=== PATIENT | male | born 1965 | race African-American/Black ===

== ENCOUNTER 2016-08-04 10:41 | Emergency (ER) | payer SELFPAY ==
[~2016-08-04 10:41] MED LIST: LISI-360 PO
[2016-08-04 10:44] VITALS: BP 183/112; PULSE 71; RESP 24; TEMP 98; O2SAT 98
[2016-08-04 11:13] VITALS: BP 182/97; PULSE 66
[2016-08-04 12:13] VITALS: BP 184/114; PULSE 69; RESP 18; O2SAT 95
--- NOTE | 2016-08-04 12:34 | PD ---
HPI Chief Complaint: Complaint Time Seen by Provider: 12:34 Travel History International Travel<30 days: No Contact w/Intl Traveler<30days: No Traveled to known affect area: No History of Present Illness HPI 50-year-old male with a history of hypertension presents to the emergency department for evaluation of testicular pain and swelling. The patient states that he has testicular swelling and pain worse on the left side for the past week. States that he has also had burning with urination for the past week with some intermittent lower abdominal pain. States that he has had swelling like this in the past that resolved on its own. Denies any fever, chills, nausea, vomiting, diarrhea, urinary frequency, hematuria, urethral discharge. States that he is sexually active and is unsure whether he could've contracted an STD. Denies any prior abdominal surgeries. Symptoms are mild. Aggravated with urination. Denies any alleviating factors. No other complaints. PFSH Past Medical History Cardiovascular Problems: Yes (htn) COPD: Yes Diminished Hearing: Yes ([place]) Glaucoma: Yes Headaches: Yes Hypertension: Yes Immunizations Current: Yes Past Surgical History Surgical History: No Previous Surgery Social History Alcohol Use: Yes (OCC) Tobacco Use: Yes (1PP3D) Substance Use: Yes (MARIJUANA) Allergies-Medications (Allergen,Severity, Reaction): Coded Allergies: Lisinopril (Verified Allergy, Severe, 08/04/16) Angioedema Reported Meds & Prescriptions Reported Meds & Active Scripts Active Amlodipine (Amlodipine Besylate) 5 Mg Tab 5 Mg PO DAILY Review of Systems Except as stated in HPI: all other systems reviewed are Neg Physical Exam Narrative GENERAL: Well-nourished and well-developed pleasant male patient in no acute distress who is nontoxic appearing. SKIN: Warm and dry. HEAD: Normocephalic and atraumatic. EYES: No injection, drainage, or hyphema noted. PERRLA. EOMI. ENT: No nasal drainage noted. Oropharynx is clear. NECK: Supple and the trachea is midline. CARDIOVASCULAR: Regular rate and rhythm. RESPIRATORY: Breath sounds are equal bilaterally with no accessory muscle use, wheezing, rhonchi, or crackles. GASTROINTESTINAL: Mild tenderness to palpation of right, mid and left lower abdomen. No rebound tenderness or guarding. Abdomen is soft and nondistended. GENITOURINARY: Uncircumcised. Testes descended bilaterally without evidence of rotation. Mild tenderness to palpation of bilateral scrotum, worse on the left. No hernias palpated. No lesions or erythema. No urethral discharge. Performed in the presence of Tlou RN. MUSCULOSKELETAL: No obvious deformities, swelling, cyanosis, or ecchymosis is present throughout the upper and lower extremities. NEUROLOGICAL: Awake, alert, and oriented. Normal speech and gait. Cranial nerves are grossly intact. Data Data Last Documented VS Vital Signs Date Time Temp Pulse Resp B/P Pulse Ox O2 Delivery O2 Flow Rate FiO2 08/04/16 15:23 67 18 204/109 95 Room Air 08/04/16 10:44 98.0 Orders Urinalysis - C+S If Indicated (08/04/16 12:32) Gc And Chlamydia Pcr (08/04/16 12:32) Us Testicles W Doppler (08/04/16 12:32) Sodium Chloride 0.9% Flush (Ns Flush) (08/04/16 12:45) Complete Blood Count With Diff (08/04/16 13:16) Comprehensive Metabolic Panel (08/04/16 13:16) Lipase (08/04/16 13:16) Ct Abd/Pel W Iv Contrast(Rout) (08/04/16 13:16) Iv Access Insert/Monitor (08/04/16 13:16) Ecg Monitoring (08/04/16 13:16) Oximetry (08/04/16 13:16) Sodium Chlor 0.9% 1000 Ml Inj (Ns 1000 M (08/04/16 13:16) Amlodipine (Norvasc) (08/04/16 15:45) Iohexol 350 Inj (Omnipaque 350 Inj) (08/04/16 15:56) Labs Laboratory Tests Test 08/04/16 08/04/16 12:40 14:14 Urine Color YELLOW Urine Turbidity CLEAR Urine pH 6.0 Urine Specific Nancy 1.021 Urine Protein NEG mg/dL Urine Glucose (UA) NEG mg/dL Urine Ketones NEG mg/dL Urine Occult Blood NEG Urine Nitrite NEG Urine Bilirubin NEG Urine Urobilinogen LESS THAN 2.0 MG/DL Urine Leukocyte Esterase NEG Urine RBC 1 /hpf Urine WBC 3 /hpf Urine Squamous Epithelial <1 /hpf Cells Urine Mucus FEW /lpf Microscopic Urinalysis Comment CULT NOT INDICATED Chlamydia trachomatis DNA NOT DETECTED (PCR) Neisseria gonorrhoeae DNA NOT DETECTED (PCR) White Blood Count 6.8 TH/MM3 Red Blood Count 4.91 MIL/MM3 Hemoglobin 14.2 GM/DL Hematocrit 42.8 % Mean Corpuscular Volume 87.2 FL Mean Corpuscular Hemoglobin 28.8 PG Mean Corpuscular Hemoglobin 33.1 % Concent Red Cell Distribution Width 15.2 % Platelet Count 271 TH/MM3 Mean Platelet Volume 7.7 FL Neutrophils (%) (Auto) 36.5 % Lymphocytes (%) (Auto) 47.7 % Monocytes (%) (Auto) 10.6 % Eosinophils (%) (Auto) 4.5 % Basophils (%) (Auto) 0.7 % Neutrophils # (Auto) 2.5 TH/MM3 Lymphocytes # (Auto) 3.3 TH/MM3 Monocytes # (Auto) 0.7 TH/MM3 Eosinophils # (Auto) 0.3 TH/MM3 Basophils # (Auto) 0.0 TH/MM3 CBC Comment DIFF FINAL Differential Comment Sodium Level 139 MEQ/L Potassium Level 3.7 MEQ/L Chloride Level 105 MEQ/L Carbon Dioxide Level 24.8 MEQ/L Anion Gap 9 MEQ/L Blood Urea Nitrogen 6 MG/DL Creatinine 0.88 MG/DL Estimat Glomerular Filtration 111 ML/MIN Rate Random Glucose 79 MG/DL Calcium Level 8.9 MG/DL Total Bilirubin 0.3 MG/DL Aspartate Amino Transf 14 U/L (AST/SGOT) Alanine Aminotransferase 20 U/L (ALT/SGPT) Alkaline Phosphatase 83 U/L Total Protein 7.9 GM/DL Albumin 3.6 GM/DL Lipase 79 U/L MDM Medical Decision Making Medical Screen Exam Complete: Yes Emergency Medical Condition: Yes Differential Diagnosis UTI versus urethritis versus STI versus epididymitis versus orchitis versus varicocele Narrative Course 50-year-old male presents to the emergency department for evaluation of testicular pain and burning with urination. Patient is afebrile. Vital signs are stable. He is slightly hypertensive however admits to a history of hypertension and does not take any medications. He has some mild scrotal tenderness. Urinalysis and testicular ultrasound has been ordered and is pending. CBC is unremarkable. CMP is unremarkable. Urinalysis is unremarkable. Gonorrhea and Chlamydia is negative. Scrotal ultrasound shows bilateral varicoceles, right greater than left. Bilateral hydroceles, left greater than right. Intact flow to both testicles. CT of the abdomen and pelvis is negative for any acute abnormalities. Patient has remained stable while here in the emergency department. His blood pressure did elevate to 204/109 and the patient became concerned. We'll start him on amlodipine for blood pressure management since he is not currently taking anything for his blood pressure. He is instructed to follow up as an outpatient with a urologist and a primary care provider. Patient verbalizes understanding and agreement with treatment plan. I discussed the case with my attending physician Dr. Cardoso who is aware of the patients history, physical examination findings, and treatment plan. Diagnosis Primary Impression: Scrotal pain Referrals: Chemo Samuels MD [facility] Patient Instructions: General Instructions, Hydrocele (ED), Varicocele (ED) Additional Instructions: Follow-up with a urologist as an outpatient. Return to the ED for any acute worsening of symptoms. Med/Other Pt SpecificInfo: Prescription(s) given Scripts Amlodipine 5 Mg Tab5 Mg PO DAILY #30 TAB Ref 0 Prov:Lucero Cardoso MD 08/04/16 Disposition: 01 DISCHARGE HOME Condition: Stable Sarah Aponte Aug 04, 2016 12:34 Sarah Aponte Aug 04, 2016 12:34
[2016-08-04] MEDS ORDERED: SODIUM CHLORIDE 0.9% FLUSH 10 ML FLUSH IVF PRN (12:45)
[2016-08-04 13:02] LABS: BLOOD, URINE NEG (NEG); COMMENT (UR) CULT NOT INDICATED; CULTURE IF INDICATED CULT NOT INDICATED; GLUCOSE,URINE NEG (NEG); KETONE, URINE NEG (NEG); MUCUS URINE FEW /lpf (OCC); NITRITE,URINE NEG (NEG); SQUAMOUS EPITHELIAL CELL URINE <1 /hpf (0-5); URINE COLOR YELLOW (YELLW/STRAW)
[2016-08-04] MEDS ORDERED: SODIUM CHLOR 0.9% 1000 ML INJ 1,000 ML IV SCH (13:16)
[2016-08-04 14:00] VITALS: BP 193/116; PULSE 68; RESP 18; O2SAT 95
[2016-08-04 14:30] LABS: AUTOMATED NEUTROPHIL # 2.5 TH/MM3 (1.8-7.7); BASOPHIL % 0.7 % (0.0-2.0); EOSINOPHIL # 0.3 TH/MM3 (0-0.4); EOSINOPHIL % 4.5 % (0.0-4.0); HEMATOCRIT 42.8 % (39.0-51.0); HEMO FLAGS DIFF FINAL; LYMPH % 47.7 % (9.0-44.0); LYMPHOCYTE # 3.3 TH/MM3 (1.0-4.8); MEAN CELL VOLUME 87.2 FL (80.0-100.0); MEAN CORPUSCULAR HEMOGLOBIN 28.8 PG (27.0-34.0); MEAN CORPUSCULAR HGB CONC 33.1 % (32.0-36.0); MONO % 10.6 % (0.0-8.0); NEUT % 36.5 % (16.0-70.0); PLATELET COUNT 271 TH/MM3 (150-450); RED BLOOD COUNT 4.91 MIL/MM3 (4.50-5.90); RED CELL DISTRIBUTION WIDTH 15.2 % (11.6-17.2); WHITE BLOOD COUNT 6.8 TH/MM3 (4.0-11.0)
[2016-08-04 14:31] VITALS: O2SAT 95
[2016-08-04 14:46] LABS: ANION GAP 9 MEQ/L (5-15); AST (GOT) 14 U/L (15-37); BICARBONATE 24.8 MEQ/L (21.0-32.0); BLOOD UREA NITROGEN 6 MG/DL (7-18); CHLORIDE 105 MEQ/L (98-107); GLOMERULAR FILTRATION RATE 111 ML/MIN (>89); POTASSIUM 3.7 MEQ/L (3.5-5.1); SODIUM (NA) 139 MEQ/L (136-145)
[2016-08-04 14:48] LABS: ALKALINE PHOSPHATASE 83 U/L (45-117); ALT (GPT) 20 U/L (12-78); TOTAL BILIRUBIN ADULT 0.3 MG/DL (0.2-1.0)
[2016-08-04 15:23] VITALS: BP 204/109; PULSE 67; RESP 18; O2SAT 95
[2016-08-04] MEDS ORDERED: amLODIPine BESYLATE 5 MG TAB PO ONE (15:45)
[2016-08-04] MEDS ORDERED: IOHEXOL 350 MG/ML 10 ML VIAL (for RAD DIAG) IV ONE (15:56)
[2016-08-04 16:04] LABS: CHLAMYDIA PCR NOT DETECTED (NOT DETECT); NEISSERIA PCR NOT DETECTED (NOT DETECT)
--- NOTE | 2016-08-04 16:24 | RADRPT ---
EXAM DATE/TIME: 08/04/2016 14:57 [facility] COMPARISON: No previous studies available for comparison. INDICATIONS : Left testicle pain. MEDICAL HISTORY : Hypertension. Left testicle pain. SURGICAL HISTORY : None. ENCOUNTER: Initial ACUITY: 1 week PAIN SCORE: 8/10 LOCATION: Bilateral testicle. MEASUREMENTS: RIGHT TESTICLE: 4.7 x 3.8 x 2.8cm LEFT TESTICLE: 4.9 x 3.5 x 3.0cm FINDINGS: RIGHT TESTICLE: Homogeneous echotexture without intra or extratesticular mass. Blood flow is symmetric and within no rmal limits. There is a moderate size varicocele with increased flow on Valsalva. Small hydrocele. Less than 2 mm epididymal cyst. LEFT TESTICLE: Homogeneous echotexture without intra or extratesticular mass. Blood flow is symmetric and within no rmal limits. Moderate size hydrocele. Small varicocele increased flow on Valsalva. SCROTUM: Within normal limits. CONCLUSION: Bilateral varicoceles, right greater than left. Bilateral hydroceles, left greater than right. Inta ct flow to both testicles. Bebeto Rivera MD on August 04, 2016 at 16:18 Board Certified Radiologist. This report was verified electronically.
--- NOTE | 2016-08-04 16:28 | RADRPT ---
EXAM DATE/TIME: 08/04/2016 15:40 [facility] COMPARISON: No previous studies available for comparison. INDICATIONS : Swollen testicles for 1 week, painful urination. IV CONTRAST: 96 cc Omnipaque 350 (iohexol) IV ORAL CONTRAST: No oral contrast ingested. RADIATION DOSE: 13.09 CTDIvol (mGy) MEDICAL HISTORY : Cardiovascular disease. Hypertension. SURGICAL HISTORY : None. ENCOUNTER: Initial ACUITY: 1 week PAIN SCALE: 2/10 LOCATION: Bilateral pelvis TECHNIQUE: Volumetric scanning of the abdomen and pelvis was performed. Using automated exposure control and ad justment of the mA and/or kV according to patient size, radiation dose was kept as low as reasonably achievable to obtain optimal diagnostic quality images. FINDINGS: LOWER LUNGS: Scattered atelectasis and/or fibrotic scarring is noted within the visualized bases. LIVER: Homogeneous density without lesion. There is no dilation of the biliary tree. No calcified gallston es. SPLEEN: Normal size without lesion. PANCREAS: Within normal limits. KIDNEYS: Normal in size and shape. Multiple left renal cysts are noted with the largest measuring 1.4 cm. The re is no solid mass, stone or hydronephrosis. ADRENAL GLANDS: Within normal limits. VASCULAR: There is no aortic aneurysm. BOWEL/MESENTERY: Uncomplicated colonic diverticulosis is noted. No acute diverticulitis is noted. ABDOMINAL WALL: Within normal limits. RETROPERITONEUM: There is no lymphadenopathy. BLADDER: No wall thickening or mass. REPRODUCTIVE: Within normal limits. INGUINAL: There is no lymphadenopathy or hernia. MUSCULOSKELETAL: Degenerative changes and scoliosis of the thoraco-lumbar spine. CONCLUSION: Uncomplicated colonic diverticulosis. Degenerative changes and scoliosis of the thora co-lumbar spine. Multiple left renal cysts. Scattered bibasilar atelectasis and/or fibrotic scarring. Stephan Churchill MD on August 04, 2016 at 16:21 Board Certified Radiologist. This report was verified electronically.
[2016-08-04] MEDS ORDERED: AMLO5TAB2 PO (16:37)
--- NOTE | 2016-08-04 23:27 | EKG ---
Date Performed: 08/04/2016 Time Performed: 15:38:46 PTAGE: 50 years EKG: Sinus rhythm NORMAL ECG INTERPRETATION BASED ON A DEFAULT AGE OF 40 YEARS PREVIOUS TRACING : 09/28/2015 09.14 Compared to prior tracing no significant change DOCTOR: Ricardo Joseph Interpretating Date/Time 08/04/2016 23:26:03
== END 2016-08-04 17:07 | disposition home or self-care (01) ==
LOC: NEPD 10:41
DX: N50.812 Left testicular pain (principal); N43.3 Hydrocele, unspecified; I10 Essential (primary) hypertension; F17.200 Nicotine dependence, unspecified, uncomplicated
CPT/HCPCS: 74177; 76870; 80053; 81001; 83690; 85025; 87491; 87591; 93005; 93975; 99284; J7030; Q9967

== ENCOUNTER 2017-02-01 07:56 | Emergency (ER) | payer SELFPAY ==
[~2017-02-01] VITALS: Ht 170.2 cm; Wt 105.0 kg
[~2017-02-01 07:56] MED LIST changes: +AMLO5TAB2 PO; -LISI-360 PO
[2017-02-01 08:00] VITALS: BP 163/94; PULSE 86; RESP 14; TEMP 98.8; O2SAT 98
[2017-02-01] MEDS ORDERED: SODIUM CHLORID 0.9% 500 ML INJ 500 ML IV ONE (09:30)
[2017-02-01 09:55] LABS: AUTOMATED NEUTROPHIL # 3.8 TH/MM3 (1.8-7.7); BASOPHIL % 0.7 % (0.0-2.0); EOSINOPHIL # 0.2 TH/MM3 (0-0.4); EOSINOPHIL % 3.1 % (0.0-4.0); HEMATOCRIT 45.4 % (39.0-51.0); HEMO FLAGS DIFF FINAL; LYMPHOCYTE # 2.2 TH/MM3 (1.0-4.8); MEAN CELL VOLUME 89.4 FL (80.0-100.0); MEAN CORPUSCULAR HEMOGLOBIN 30.3 PG (27.0-34.0); MEAN CORPUSCULAR HGB CONC 33.8 % (32.0-36.0); MONO % 12.8 % (0.0-8.0); NEUT % 52.4 % (16.0-70.0); PLATELET COUNT 277 TH/MM3 (150-450); RED BLOOD COUNT 5.07 MIL/MM3 (4.50-5.90); RED CELL DISTRIBUTION WIDTH 15.1 % (11.6-17.2); WHITE BLOOD COUNT 7.2 TH/MM3 (4.0-11.0)
[2017-02-01 10:14] LABS: ANION GAP 9 MEQ/L (5-15); AST (GOT) 12 U/L (15-37); BICARBONATE 24.3 MEQ/L (21.0-32.0); BLOOD UREA NITROGEN 9 MG/DL (7-18); CHLORIDE 104 MEQ/L (98-107); GLOMERULAR FILTRATION RATE 115 ML/MIN (>89); POTASSIUM 3.8 MEQ/L (3.5-5.1); SODIUM (NA) 137 MEQ/L (136-145)
[2017-02-01 10:20] LABS: ALKALINE PHOSPHATASE 77 U/L (45-117); ALT (GPT) 19 U/L (12-78); TOTAL BILIRUBIN ADULT 0.3 MG/DL (0.2-1.0)
[2017-02-01] MEDS ORDERED: IOHEXOL 350 MG/ML 10 ML VIAL (for RAD DIAG) IVCONTRAST ONE (11:00)
--- NOTE | 2017-02-01 11:41 | RADRPT ---
EXAM DATE/TIME: 02/01/2017 10:59 [facility] COMPARISON: CT ABDOMEN & PELVIS W CONTRAST, August 04, 2016, 15:40. INDICATIONS : Swelling under testicles and pelvic pain for one week. IV CONTRAST: 72 cc Omnipaque 350 (iohexol) IV ORAL CONTRAST: No oral contrast ingested. RADIATION DOSE: 12.02 CTDIvol (mGy) MEDICAL HISTORY : Hypertension. Chronic obstructive pulmonary disease. SURGICAL HISTORY : None. ENCOUNTER: Initial ACUITY: 1 day PAIN SCALE: 8/10 LOCATION: Bilateral pelvis TECHNIQUE: Volumetric scanning of the pelvis was performed. Using automated exposure control and adjustment of t he mA and/or kV according to patient size, radiation dose was kept as low as reasonably achievable to obtain optimal diagnostic quality images. DICOM format image data is available electronically for review and comparison. FINDINGS: BOWEL/MESENTERY: The visualized small and large bowel demonstrate no acute abnormality. There is no free fluid. BLADDER: There is no wall thickening or mass. RETROPERITONEUM: There is no aneurysm. There is a single mildly enlarged left external intact lymph node measuring 12 mm in short axis diameter.. There is mild atherosclerotic disease. REPRODUCTIVE: Prostate gland is within normal limits. INGUINAL: There is no hernia. There are 2 enlarged left inguinal lymph nodes measuring up to 13 mm in short axi s diameter.. MUSCULOSKELETAL: Within normal limits for patient age. There are inflammatory changes on the inferior aspect of the left hemiscrotum with a focal 2 cm area of low density. There is overlying skin thickening. CONCLUSION: 1. There are inflammatory changes and skin thickening on the inferior left hemiscrotum with focal 2 c m area of low density. This could represent an inflammatory process or abscess. 2. There are mildly enlarged left inguinal lymph node seen in the left external intact lymph node, li tyron reactive secondary to the scrotal inflammatory process. Faraz Ackerman MD on February 01, 2017 at 11:24 Board Certified Radiologist. This report was verified electronically.
[2017-02-01 12:40] VITALS: BP 150/91; PULSE 87; RESP 18; O2SAT 100
--- NOTE | 2017-02-01 12:43 | PD ---
Physical Exam Date Seen by Provider: Feb 01, 2017 Time Seen by Provider: 12:41 Narrative 51-year-old male with abscess to the left groin region. I was asked by Dr. Cota to drain this abscess. Please see procedure note. Data Data Last Documented VS Vital Signs Date Time Temp Pulse Resp B/P (MAP) Pulse Ox O2 Delivery O2 Flow Rate FiO2 02/01/17 09:12 Room Air 02/01/17 08:00 98.8 86 14 163/94 (117) 98 Orders Orders Iv Access Insert/Monitor (02/01/17 09:17) Complete Blood Count With Diff (02/01/17 09:17) Comprehensive Metabolic Panel (02/01/17 09:17) Lactic Acid (02/01/17 09:17) Ct Pelvis W Iv Contrast(Rout) (02/01/17 ) Sodium Chlorid 0.9% 500 Ml Inj (Ns 500 M (02/01/17 09:30) Electrocardiogram (02/01/17 ) Troponin I (02/01/17 09:28) Iohexol 350 Inj (Omnipaque 350 Inj) (02/01/17 11:00) Lidocai-Epi 2%-1:100,000 Inj (Xylocaine- (02/01/17 12:45) Labs Laboratory Tests Test 02/01/17 09:25 White Blood Count 7.2 TH/MM3 Red Blood Count 5.07 MIL/MM3 Hemoglobin 15.3 GM/DL Hematocrit 45.4 % Mean Corpuscular Volume 89.4 FL Mean Corpuscular Hemoglobin 30.3 PG Mean Corpuscular Hemoglobin Concent 33.8 % Red Cell Distribution Width 15.1 % Platelet Count 277 TH/MM3 Mean Platelet Volume 7.5 FL Neutrophils (%) (Auto) 52.4 % Lymphocytes (%) (Auto) 31.0 % Monocytes (%) (Auto) 12.8 % Eosinophils (%) (Auto) 3.1 % Basophils (%) (Auto) 0.7 % Neutrophils # (Auto) 3.8 TH/MM3 Lymphocytes # (Auto) 2.2 TH/MM3 Monocytes # (Auto) 0.9 TH/MM3 Eosinophils # (Auto) 0.2 TH/MM3 Basophils # (Auto) 0.0 TH/MM3 CBC Comment DIFF FINAL Differential Comment Blood Urea Nitrogen 9 MG/DL Creatinine 0.85 MG/DL Random Glucose 84 MG/DL Total Protein 8.2 GM/DL Albumin 3.6 GM/DL Calcium Level 9.2 MG/DL Alkaline Phosphatase 77 U/L Aspartate Amino Transf (AST/SGOT) 12 U/L Alanine Aminotransferase (ALT/SGPT) 19 U/L Total Bilirubin 0.3 MG/DL Sodium Level 137 MEQ/L Potassium Level 3.8 MEQ/L Chloride Level 104 MEQ/L Carbon Dioxide Level 24.3 MEQ/L Anion Gap 9 MEQ/L Estimat Glomerular Filtration Rate 115 ML/MIN Lactic Acid Level 1.5 mmol/L MDM Medical Record Reviewed: Yes Supervised Visit with ADAM: Yes Procedures Procedure Narrative After the risks and benefits were discussed the following procedure was performed: INCISION AND DRAINAGE OF ABSCESS: The area was prepped and was sterilely draped. A subcutaneous wheal of 2 % Xylocaine with lidocaine with a total number 2.5 mL was used to anesthetize the area. The area was properly anesthetized. A number 11 scalpel was used to make a 1-cm incision across the area of the abscess. Cultures were obtained. The abscess was drained an irrigated with normal saline. Quarter inch iodoform packing was placed in the wound. Sterile dressing applied. Patient advised to have packing removed in two days. Scripts No Active Prescriptions or Reported Meds Condition: Stable Tyrese Rivera Feb 01, 2017 12:43
[2017-02-01] MEDS ORDERED: LIDOCAINE 2%/EPINEPHrine 1:100,000 20ML MDV NERV BLOCK ONE (12:45)
[2017-02-01] MEDS ORDERED: CEPH-460 PO (13:16)
[2017-02-01] MEDS ORDERED: BACT800T5 PO (13:16)
--- NOTE | 2017-02-01 13:17 | PD ---
HPI Chief Complaint: Abnormal Results Time Seen by Provider: 09:10 Travel History International Travel<30 days: No Contact w/Intl Traveler<30days: No Traveled to known affect area: No History of Present Illness HPI Patient is a 51-year-old male who comes in complaining of pain and swelling to his scrotum. He says he had this before, but it was more pain to his testicle. He says this is different and it is been there for the past week and seems to be getting worse. He has noticed some drainage in his underwear. He says his tried to put a hot compress on once, but he felt it was too hot. He denies fever or chills. He says he does have pain after urination. He denies any issues moving his bowels. He denies any discharge from his penis. PFSH Past Medical History Cardiovascular Problems: Yes (htn) COPD: Yes Diminished Hearing: Yes ([place]) Glaucoma: Yes Headaches: Yes Hypertension: Yes Immunizations Current: Yes Tetanus Vaccination: < 5 Years Influenza Vaccination: No Past Surgical History Surgical History: No Previous Surgery Social History Alcohol Use: Yes (OCC) Tobacco Use: Yes (04/21 PPD) Substance Use: Yes (MARIJUANA) Allergies-Medications (Allergen,Severity, Reaction): Coded Allergies: lisinopril (Unverified Allergy, Severe, 02/01/17) Angioedema Reported Meds & Prescriptions Reported Meds & Active Scripts Active Keflex (Cephalexin) 500 Mg Capsule 500 Mg PO Q6H 7 Days Bactrim DS (Sulfamethoxazole-Trimethoprim) 800-160 Mg Tab 1 Tab PO BID Review of Systems Except as stated in HPI: all other systems reviewed are Neg General / Constitutional: No: Fever, Chills HENT: No: Headaches, Lightheadedness Cardiovascular: No: Chest Pain or Discomfort Respiratory: No: Shortness of Breath Gastrointestinal: No: Nausea, Vomiting Genitourinary: No: Decreased Urinary Output, Discharge Musculoskeletal: No: Edema, Pain Skin: Positive Lesions Neurologic: No: Weakness, Dizziness Physical Exam Narrative GENERAL: Awake and alert, in no acute distress. SKIN: 2 cm abscess in the left groin area. Large surrounding area of induration. No active drainage. HEAD: Atraumatic. Normocephalic. EYES: Pupils equal and round. No scleral icterus. ENT: Mucous membranes pink and moist. NECK: Trachea midline. No JVD. CARDIOVASCULAR: Regular rate and rhythm. No murmur appreciated. RESPIRATORY: No accessory muscle use. Clear to auscultation. Breath sounds equal bilaterally. GASTROINTESTINAL: Abdomen soft, non-tender, nondistended. : Exam performed in the presence of a nurse. No testicular swelling or pain, abscess is in the groin area. No lesions on the penis. MUSCULOSKELETAL: No obvious deformities. No clubbing. No cyanosis. No edema. NEUROLOGICAL: Awake and alert. No obvious cranial nerve deficits. Motor grossly within normal limits. Normal speech. PSYCHIATRIC: Appropriate mood and affect; insight and judgment normal. Data Data Last Documented VS Vital Signs Date Time Temp Pulse Resp B/P (MAP) Pulse Ox O2 Delivery O2 Flow Rate FiO2 02/01/17 13:38 02/01/17 12:40 87 18 100 Room Air 02/01/17 08:00 98.8 Orders Orders Iv Access Insert/Monitor (02/01/17 09:17) Complete Blood Count With Diff (02/01/17 09:17) Comprehensive Metabolic Panel (02/01/17 09:17) Lactic Acid (02/01/17 09:17) Ct Pelvis W Iv Contrast(Rout) (02/01/17 ) Sodium Chlorid 0.9% 500 Ml Inj (Ns 500 M (02/01/17 09:30) Electrocardiogram (02/01/17 ) Troponin I (02/01/17 09:28) Iohexol 350 Inj (Omnipaque 350 Inj) (02/01/17 11:00) Lidocai-Epi 2%-1:100,000 Inj (Xylocaine- (02/01/17 12:45) Wound Culture And Gram Stain (02/01/17 13:14) Ed Discharge Order (02/01/17 13:14) Labs Laboratory Tests Test 02/01/17 09:25 White Blood Count 7.2 TH/MM3 Red Blood Count 5.07 MIL/MM3 Hemoglobin 15.3 GM/DL Hematocrit 45.4 % Mean Corpuscular Volume 89.4 FL Mean Corpuscular Hemoglobin 30.3 PG Mean Corpuscular Hemoglobin Concent 33.8 % Red Cell Distribution Width 15.1 % Platelet Count 277 TH/MM3 Mean Platelet Volume 7.5 FL Neutrophils (%) (Auto) 52.4 % Lymphocytes (%) (Auto) 31.0 % Monocytes (%) (Auto) 12.8 % Eosinophils (%) (Auto) 3.1 % Basophils (%) (Auto) 0.7 % Neutrophils # (Auto) 3.8 TH/MM3 Lymphocytes # (Auto) 2.2 TH/MM3 Monocytes # (Auto) 0.9 TH/MM3 Eosinophils # (Auto) 0.2 TH/MM3 Basophils # (Auto) 0.0 TH/MM3 CBC Comment DIFF FINAL Differential Comment Blood Urea Nitrogen 9 MG/DL Creatinine 0.85 MG/DL Random Glucose 84 MG/DL Total Protein 8.2 GM/DL Albumin 3.6 GM/DL Calcium Level 9.2 MG/DL Alkaline Phosphatase 77 U/L Aspartate Amino Transf (AST/SGOT) 12 U/L Alanine Aminotransferase (ALT/SGPT) 19 U/L Total Bilirubin 0.3 MG/DL Sodium Level 137 MEQ/L Potassium Level 3.8 MEQ/L Chloride Level 104 MEQ/L Carbon Dioxide Level 24.3 MEQ/L Anion Gap 9 MEQ/L Estimat Glomerular Filtration Rate 115 ML/MIN Lactic Acid Level 1.5 mmol/L Troponin I LESS THAN 0.02 NG/ML [facility] Medical Decision Making Medical Screen Exam Complete: Yes Emergency Medical Condition: Yes Medical Record Reviewed: Yes Differential Diagnosis Abscess versus cellulitis versus folliculitis versus enlarged lymph node Narrative Course Patient is a 51-year-old male comes in complaining of pain and swelling to his testicular area. Exam shows a groin abscess. IV established, labs sent. Labs show no acute abnormalities. CT of the pelvis performed shows an abscess of the hemiscrotum. Last [address] 02/01/17 0000 Signed Impressions: Service Date/Time: Wednesday, February 01, 2017 10:59 - CONCLUSION: 1. There are inflammatory changes and skin thickening on the inferior left hemiscrotum with focal 2 cm area of low density. This could represent an inflammatory process or abscess. 2. There are mildly enlarged left inguinal lymph node seen in the left external intact lymph node, likely reactive secondary to the scrotal inflammatory process. Faraz Ackerman MD Abscess drained by CRISTAL Rivera with a large amount of pus expressed. Patient given prescriptions for Bactrim and Keflex. He is advised follow-up with urology. Advised return in 2 days for wound check. Diagnosis Primary Impression: Abscess Referrals: Errol Lin MD call for appointment Patient Instructions: Abscess (ED), General Instructions Additional Instructions: Follow-up with urology. Take all of your antibiotics. Return to the ED as needed for any worsening symptoms. Scripts Cephalexin (Keflex) 500 Mg Capsule 500 MG PO Q6H for Infection for 7 Days, #28 CAP 0 Refills Prov: Sujey Cota MD 02/01/17 Sulfamethoxazole-Trimethoprim (Bactrim DS) 800-160 Mg Tab 1 TAB PO BID for Infection, #14 TAB 0 Refills Prov: Sujey Cota MD 02/01/17 Disposition: 01 DISCHARGE HOME Condition: Stable Sujey Cota MD Feb 01, 2017 13:17
[2017-02-01] MEDS ORDERED: VENTAER INH (19:30)
--- NOTE | 2017-02-01 21:36 | EKG ---
Date Performed: 02/01/2017 Time Performed: 09:37:10 PTAGE: 51 years EKG: Sinus rhythm NONSPECIFIC ST ELEVATION BORDERLINE ECG PREVIOUS TRACING : 08/04/2016 15.38 Compared to the previous tracing mild ST elevation is uncha nged DOCTOR: Sarah Jones Interpretating Date/Time 02/01/2017 21:35:25
== END 2017-02-01 13:46 | disposition home or self-care (01) ==
LOC: NEPE 07:56
DX: L02.214 Cutaneous abscess of groin (principal); J44.9 Chronic obstructive pulmonary disease, unspecified; H40.9 Unspecified glaucoma; F17.200 Nicotine dependence, unspecified, uncomplicated
CPT/HCPCS: 10061; 72193; 80053; 83605; 84484; 85025; 86403; 87070; 93005; 96360; 99285; J7040; Q9967; 87205

== ENCOUNTER 2017-02-03 08:30 | Emergency (ER) | payer SELFPAY ==
[~2017-02-03] VITALS: Ht 170.2 cm; Wt 106.0 kg
[~2017-02-03 08:30] MED LIST changes: -AMLO5TAB2 PO; +BACT800T5 PO; +CEPH-460 PO
[2017-02-03 08:31] VITALS: BP 168/92; PULSE 80; RESP 18; TEMP 98.5; O2SAT 98
--- NOTE | 2017-02-03 08:58 | PD ---
HPI Chief Complaint: Wound/Suture/Staple Re-Check Time Seen by Provider: 08:57 Travel History International Travel<30 days: No Contact w/Intl Traveler<30days: No Traveled to known affect area: No History of Present Illness HPI 51-year-old male presents to the emergency department requesting packing removal after having an abscess to his left scrotal area incised and drained 2 days ago. Denies fever, vomiting. Has been taking antibiotics as prescribed. Reports improvement in symptoms of the abscess. Says the area is tender. Denies dysuria. Allergies to lisinopril. Has no other medical complaints. No other modifying factors or associated signs and symptoms. PFSH Past Medical History Cardiovascular Problems: Yes (HTN) COPD: Yes Diminished Hearing: Yes ([place]) Glaucoma: Yes Headaches: Yes Hypertension: Yes Immunizations Current: Yes Social History Alcohol Use: Yes (OCC) Tobacco Use: Yes (04/21 PPD) Substance Use: Yes ([place]) Allergies-Medications (Allergen,Severity, Reaction): Coded Allergies: lisinopril (Unverified Allergy, Severe, 02/01/17) Angioedema Reported Meds & Prescriptions Reported Meds & Active Scripts Active Keflex (Cephalexin) 500 Mg Capsule 500 Mg PO Q6H 7 Days Bactrim DS (Sulfamethoxazole-Trimethoprim) 800-160 Mg Tab 1 Tab PO BID Review of Systems Except as stated in HPI: all other systems reviewed are Neg Physical Exam Narrative GENERAL: Well-nourished, well-developed black male patient, in no acute distress ; afebrile, nontoxic-appearing SKIN: There is an indurated area to the left scrotal/groin area post incision and drainage and iodoform packing is not intact; no drainage noted. There is a zone of inflammation around it but no lymphangitis. HEAD: Atraumatic. Normocephalic. EYES: Pupils equal and round. No scleral icterus. No injection or drainage. ENT: Mucosa pink and moist. Airway patent. NECK: Trachea midline. CARDIOVASCULAR: Regular rate. RESPIRATORY: No accessory muscle use. GASTROINTESTINAL: Rounded. MUSCULOSKELETAL: No obvious deformities. No clubbing. No cyanosis. No edema. NEUROLOGICAL: Awake and alert. Oriented 3. No obvious cranial nerve deficits. Motor grossly within normal limits. Normal speech. PSYCHIATRIC: Appropriate mood and affect; insight and judgment normal. Data Data Last Documented VS Vital Signs Date Time Temp Pulse Resp B/P (MAP) Pulse Ox O2 Delivery O2 Flow Rate FiO2 02/03/17 08:31 98.5 80 18 168/92 (117) 98 Room Air Orders Orders Ed Discharge Order (02/03/17 09:05) MDM Medical Decision Making Medical Screen Exam Complete: Yes Emergency Medical Condition: Yes Medical Record Reviewed: Yes Differential Diagnosis Encounter for abscess packing removal, abscess recheck, medical clearance Narrative Course 51-year-old male presents for abscess packing removal. Abscess was incised and drained 2 days ago. He is taking Keflex and Bactrim as prescribed. Wound culture from 02/01/2017 is growing group beta strep and is still not final. Patient is afebrile and nontoxic-appearing. Denies fever, vomiting. Reports improvement to the area. Instructed patient to continue antibiotics as prescribed. Instructed patient to follow up with primary care provider. Patient verbalizes understanding and agreement with treatment plan. Patient is medically cleared and stable for discharge. Discussed reasons to return to the emergency department. Patient agrees with treatment plan. The patients vital signs are stable and the patient is stable for outpatient follow-up and treatment. Patient discharged home, stable and in no acute distress. Diagnosis Primary Impression: Encounter for abscess packing removal Referrals: Primary Care Physician Patient Instructions: Abscess (ED), Abscess Follow-up (ED), Abscess Incision and Drainage (DC), General Instructions Additional Instructions: Continue and complete Complete full course of antibiotics Warm compresses to the affected area Keep area clean and dry Ibuprofen or Tylenol as directed and as needed for pain and inflammation Follow-up with primary care provider Return to emergency department immediately with worsening of symptoms Med/Other Pt SpecificInfo: No Change to Meds, No Meds Exist/No RX given Disposition: 01 DISCHARGE HOME Condition: Stable Sarah Read Feb 03, 2017 08:58
== END 2017-02-03 11:32 | disposition home or self-care (01) ==
LOC: NEPD 08:30
DX: Z48.00 Encounter for change or removal of nonsurgical wound dressing (principal)
CPT/HCPCS: 99281

== ENCOUNTER 2017-04-27 12:29 | Observation (INO) | payer SELFPAY ==
[2017-04-27] VITALS (8 sets, daily range): BP systolic 144–189; BP diastolic 88–109; PULSE 71–85; RESP 16–18; TEMP 97.9–98.4; O2SAT 96–99
--- NOTE | 2017-04-27 14:38 | RADRPT ---
EXAM DATE/TIME: 04/27/2017 14:05 [facility] COMPARISON: CHEST SINGLE AP, September 27, 2015, 21:14. INDICATIONS : Right side headache radiating into right shoulder, and right side chest pains x1 week. MEDICAL HISTORY : None. SURGICAL HISTORY : None. ENCOUNTER: Initial ACUITY: 1 week PAIN SCORE: 8/10 LOCATION: Right chest FINDINGS: Minimal linear scarring or atelectasis in the lower lung lim bilaterally. No evidence of effusion. Cardiomediastinal contours and pulmonary vasculature are satisfactory and stable. There are degenera tive changes in the spine. CONCLUSION: Minimal basilar parenchymal opacities. Faraz Tan MD on April 27, 2017 at 14:34 Board Certified Radiologist. This report was verified electronically.
[2017-04-27 15:17] LABS: BASOPHIL # 0.1 TH/MM3 (0-0.2); BASOPHIL % 1.4 % (0.0-2.0); EOSINOPHIL # 0.4 TH/MM3 (0-0.4); EOSINOPHIL % 4.6 % (0.0-4.0); HEMATOCRIT 45.7 % (39.0-51.0); HEMOGLOBIN 15.1 GM/DL (13.0-17.0); LYMPH % 46.2 % (9.0-44.0); LYMPHOCYTE # 3.6 TH/MM3 (1.0-4.8); MEAN CELL VOLUME 89.8 FL (80.0-100.0); MEAN CORPUSCULAR HEMOGLOBIN 29.7 PG (27.0-34.0); MEAN CORPUSCULAR HGB CONC 33.1 % (32.0-36.0); MEAN PLATELET VOLUME 7.7 FL (7.0-11.0); MONO % 9.4 % (0.0-8.0); MONOCYTE # 0.7 TH/MM3 (0-0.9); NEUT % 38.4 % (16.0-70.0); PLATELET COUNT 228 TH/MM3 (150-450); RED BLOOD COUNT 5.08 MIL/MM3 (4.50-5.90); RED CELL DISTRIBUTION WIDTH 15.6 % (11.6-17.2); WHITE BLOOD COUNT 7.8 TH/MM3 (4.0-11.0)
[2017-04-27 15:28] LABS: PROTHROMBIN TIME - PATIENT 10.6 SEC (9.8-11.6)
--- NOTE | 2017-04-27 15:33 | PD ---
HPI . Jaw pain Chief Complaint: Respiratory Symptoms Time Seen by Provider: 15:03 Travel History International Travel<30 days: No Contact w/Intl Traveler<30days: No Traveled to known affect area: No History of Present Illness HPI 51 yo male presents to ED with multiple complaints. He is a poor historian. For the last two weeks he has had episodic 3/10 chest pain that radiates to arm. The chest pain occurs randomly and is not associated with any exertion or diaphoresis. He also complains of jaw pain that has also started within the last two weeks. The jaw pain does not occur at the same time as the chest pain. He states that he will develop pain and swelling of his right jaw multiple times per day and that the pain and swelling will last for just a few seconds. He has poor dentition and has not been to a dentist in many years. He is also complaining of some shortness of breath for the last two weeks. He denies any fever/chills, nasal congestion or cough. There are no aggravating or relieving factors. He takes Advil for all of these complaints with mild relief of his jaw pain. PFSH Past Medical History Cardiovascular Problems: Yes (HTN) COPD: Yes Diminished Hearing: Yes ([place]) Glaucoma: Yes Headaches: Yes Hypertension: Yes Respiratory: Yes Immunizations Current: Yes Tetanus Vaccination: < 5 Years Influenza Vaccination: No Past Surgical History Surgical History: No Previous Surgery Social History Alcohol Use: Yes (OCC) Tobacco Use: Yes (04/21 PPD) Substance Use: Yes ([place]) Allergies-Medications (Allergen,Severity, Reaction): Coded Allergies: lisinopril (Unverified Allergy, Severe, 04/27/17) Angioedema Reported Meds & Prescriptions Reported Meds & Active Scripts Active No Active Prescriptions or Reported Medications Review of Systems ROS Limitations: Poor Historian Except as stated in HPI: all other systems reviewed are Neg General / Constitutional: No: Fever, Chills Eyes: No: Blurred Vision HENT: Positive: Headaches, Dental Difficulties, No: Rhinorrhea, Congestion Cardiovascular: Positive: Chest Pain or Discomfort Respiratory: Positive: Shortness of Breath Gastrointestinal: No: Nausea, Vomiting Physical Exam Narrative GENERAL: Awake and alert and in no acute distress. SKIN: warm/dry. Good color. HEAD: Normocephalic. Atraumatic. There is no swelling of his jaw. EYES: Pupils equal and round. No scleral icterus. No injection or drainage. ENT: No nasal bleeding or discharge. Mucous membranes pink and moist. Very poor dentition. No tenderness to percussion of his teeth. NECK: Trachea midline. Full range of motion without pain.. No cervical adenopathy palpated though he complains that the swelling has been along the right anterior cervical chain. There is no thyromegaly. No tenderness of the submandibular glands. CARDIOVASCULAR: Regular rate and rhythm. Heart sounds are normal. RESPIRATORY: No accessory muscle use. Clear to auscultation. Breath sounds equal bilaterally. GASTROINTESTINAL: Abdomen soft. Nontender. Bowel sounds present. Nondistended. MUSCULOSKELETAL: No obvious deformities. No peripheral edema. NEUROLOGICAL: Awake and alert. No obvious cranial nerve deficits. Motor grossly within normal limits. Normal speech. PSYCHIATRIC: Appropriate mood and affect; insight and judgment normal. Data Data Last Documented VS Vital Signs Date Time Temp Pulse Resp B/P (MAP) Pulse Ox O2 Delivery O2 Flow Rate FiO2 04/27/17 15:53 76 18 184/106 (132) 98 Room Air 04/27/17 12:31 98.4 Orders Orders Electrocardiogram (04/27/17 13:08) B-Type Natriuretic Peptide (04/27/17 13:08) Ckmb (Isoenzyme) Profile (04/27/17 13:08) Complete Blood Count With Diff (04/27/17 13:08) Comprehensive Metabolic Panel (04/27/17 13:08) Magnesium (Mg) (04/27/17 13:08) Prothrombin Time / Inr (Pt) (04/27/17 13:08) Act Partial Throm Time (Ptt) (04/27/17 13:08) Troponin I (04/27/17 13:08) Lipase (04/27/17 13:08) Chest, Pa & Lat (04/27/17 13:08) CKMB (04/27/17 15:00) CKMB% (04/27/17 15:00) Labs Laboratory Tests Test 04/27/17 15:00 White Blood Count 7.8 TH/MM3 Red Blood Count 5.08 MIL/MM3 Hemoglobin 15.1 GM/DL Hematocrit 45.7 % Mean Corpuscular Volume 89.8 FL Mean Corpuscular Hemoglobin 29.7 PG Mean Corpuscular Hemoglobin Concent 33.1 % Red Cell Distribution Width 15.6 % Platelet Count 228 TH/MM3 Mean Platelet Volume 7.7 FL Neutrophils (%) (Auto) 38.4 % Lymphocytes (%) (Auto) 46.2 % Monocytes (%) (Auto) 9.4 % Eosinophils (%) (Auto) 4.6 % Basophils (%) (Auto) 1.4 % Neutrophils # (Auto) 3.0 TH/MM3 Lymphocytes # (Auto) 3.6 TH/MM3 Monocytes # (Auto) 0.7 TH/MM3 Eosinophils # (Auto) 0.4 TH/MM3 Basophils # (Auto) 0.1 TH/MM3 CBC Comment DIFF FINAL Differential Comment Prothrombin Time 10.6 SEC Prothromb Time International Ratio 1.0 RATIO Activated Partial Thromboplast Time 27.4 SEC Blood Urea Nitrogen 8 MG/DL Creatinine 0.94 MG/DL Random Glucose 79 MG/DL Total Protein 8.3 GM/DL Albumin 3.7 GM/DL Calcium Level 8.6 MG/DL Magnesium Level 2.1 MG/DL Alkaline Phosphatase 91 U/L Aspartate Amino Transf (AST/SGOT) 15 U/L Alanine Aminotransferase (ALT/SGPT) 25 U/L Total Bilirubin 0.3 MG/DL Sodium Level 138 MEQ/L Potassium Level 4.7 MEQ/L Chloride Level 105 MEQ/L Carbon Dioxide Level 28.1 MEQ/L Anion Gap 5 MEQ/L Estimat Glomerular Filtration Rate 102 ML/MIN Total Creatine Kinase 108 U/L Creatine Kinase MB 1.3 NG/ML Troponin I LESS THAN 0.02 NG/ML B-Type Natriuretic Peptide 46 PG/ML Lipase 81 U/L MDM Medical Decision Making Medical Screen Exam Complete: Yes Emergency Medical Condition: Yes Interpretation(s) EKG shows a normal sinus rhythm with no acute ischemic changes Differential Diagnosis Differential diagnosis of facial swelling includes but is not limited to dental abscess, cellulitis, angioedema, facial trauma. Differential diagnosis of chest pain includes but is not limited to musculoskeletal pain, pulmonary embolism, acute coronary syndrome, pneumonia, pleurisy Narrative Course This patient presents with multiple complaints. His chief complaint seems to be jaw pain and swelling which comes frequently daily and last a few seconds. I don't think that there is very much to this complaint. Is more concerning complaint is the intermittent chest pain that he's been having for the last couple of weeks. He reports a history of COPD and hypertension but takes no medications. Last Impressions Chest X-Ray 04/27/17 1308 Signed Impressions: Service Date/Time: Thursday, April 27, 2017 14:05 - CONCLUSION: Minimal basilar parenchymal opacities. Faraz Tan MD CBC & BMP Diagram 04/27/17 15:00 Total Protein 8.3 H, Albumin 3.7, Calcium Level 8.6, Magnesium Level 2.1, Alkaline Phosphatase 91, Aspartate Amino Transf (AST/SGOT) 15, Alanine Aminotransferase (ALT/SGPT) 25, Total Bilirubin 0.3 trop < 0.02 I feel that this patient needs to be admitted to the chest pain center for further evaluation of the intermittent chest pain that he's had for the last couple weeks. Diagnosis Primary Impression: Chest pain Qualified Codes: R07.9 - Chest pain, unspecified Additional Impression: Jaw pain Admitting Information Admitting Physician Requests: Observation Scripts No Active Prescriptions or Reported Meds Condition: Stable Neema Kuhn MD Apr 27, 2017 15:33
[2017-04-27 15:43] LABS: ALBUMIN 3.7 GM/DL (3.4-5.0); ALT (GPT) 25 U/L (12-78); AST (GOT) 15 U/L (15-37); BICARBONATE 28.1 MEQ/L (21.0-32.0); BLOOD UREA NITROGEN 8 MG/DL (7-18); CALCIUM 8.6 MG/DL (8.5-10.1); CHLORIDE 105 MEQ/L (98-107); CREATININE 0.94 MG/DL (0.60-1.30); GLOMERULAR FILTRATION RATE 102 ML/MIN (>89); GLUCOSE,RANDOM 79 MG/DL (74-106); LIPASE 81 U/L (73-393); MAGNESIUM 2.1 MG/DL (1.5-2.5); SODIUM (NA) 138 MEQ/L (136-145)
[2017-04-27 15:46] LABS: ALKALINE PHOSPHATASE 91 U/L (45-117); TOTAL BILIRUBIN ADULT 0.3 MG/DL (0.2-1.0); TOTAL PROTEIN 8.3 GM/DL (6.4-8.2); TROPONIN I LESS THAN 0.02 NG/ML (0.02-0.05)
[2017-04-27] MEDS ORDERED: ACETAMINOPHEN 500 MG CPLT PO PRN (17:00)
[2017-04-27] MEDS ORDERED: SODIUM CHLORIDE 0.9% FLUSH 10 ML FLUSH IV FLUSH PRN (17:00)
[2017-04-27] MEDS ORDERED: ONDANSETRON HCL 4 MG/2 ML VIAL IV PUSH PRN (17:00)
[2017-04-27] MEDS ORDERED: NITROGLYCERIN 0.4 MG SL 25 TABS/BTL SL PRN (17:00)
--- NOTE | 2017-04-27 17:12 | HHI.HP ---
HPI Primary Care Physician No Primary Care Physician Chief Complaint Chest pain History of Present Illness 51-year-old male with history of hypertension, congestive heart failure, and current smoker presents to emergency room for chest pain. Of note he is a poor historian. Onset of chest pain "for a long time." Location left anterior chest. Characterized as sharp. Radiation to left arm and left scapula. Duration 2-3 minutes. Associated symptoms include dyspnea and diaphoresis at times. Denies nausea or vomiting. No known precipitating or relieving factors. Episodes occurred at least 3 times today. Review of Systems General: No fatigue,weakness, fever, chills, or recent illness change in appetite. Has been his general state of health. HEENT: No [place], no vision changes, no nasal congestion or drainage, no dysphasia CV: As stated above. Currently chest pain-free. No pressure, palpitations, intermittent leg pain, dizziness RESP: No SOB, cough, wheeze, or recent URI. Endorses history of COPD and current smoker. GI: No nausea, vomiting, bowel changes, diarrhea, constipation, pain, distention , melena, or blood in the stool. No unintentional weight gain or weight loss. : No dysuria, urgency, frequency EXT: No lower leg edema, no paraesthesias MS: No discomfort or change in ROM NEURO: No difficulty with balance, LOC, or motor/sensory deficits PSYCH: No anxiety, depression SKIN: No rashes, no concerning lesions Past Family Social History Allergies: Coded Allergies: lisinopril (Unverified Allergy, Severe, 04/27/17) Angioedema Past Medical History Hypertension, CHF, COPD, TIA, glaucoma Past Surgical History None Reported Medications Reported Meds & Active Scripts Active No Active Prescriptions or Reported Medications Active Ordered Medications Current Medications Medications (Trade) Dose Ordered Sig/Sonny Route Start Time Stop Time Status Last Admin (NS Flush) 2 ml UNSCH PRN IV FLUSH 04/27/17 17:00 (NS Flush) 2 ml BID IV FLUSH 04/27/17 21:00 (Tylenol) 500 mg Q4H PRN PO 04/27/17 17:00 (Zofran Inj) 4 mg Q6H PRN IV PUSH 04/27/17 17:00 (Nitrostat Sl) 0.4 mg Q5M PRN SL 04/27/17 17:00 (Aspirin) 325 mg DAILY PO 04/28/17 09:00 Family History Noncontributory for early onset cardiovascular disease. Social History Known hypertension. No known diabetes, CAD, or hyperlipidemia. Current smoker 1/3pack daily. 20 pack year history. . Endorses active lifestyle. Past cardiac testing None Physical Exam Vital Signs Vital Signs Date Time Temp Pulse Resp B/P (MAP) Pulse Ox O2 Delivery O2 Flow Rate FiO2 04/27/17 17:02 77 18 175/109 (131) 98 Room Air 04/27/17 15:53 76 18 184/106 (132) 98 Room Air 04/27/17 14:48 74 18 189/109 (135) 98 Room Air 04/27/17 14:47 69 22 95 Room Air 04/27/17 12:31 98.4 85 16 173/98 (123) 98 Physical Exam GENERAL: Alert WN, WD, NAD, pleasant, male who appears older than stated age. HEAD: NC, AT EYES: Sclera clear, conjunctiva without injection, pupils equal and round ENT: Mucous membranes pink and moist and intact, poor dentition NECK: Supple, no masses, trachea midline CV: RRR, without murmur, rub, gallop, no JVD, S1-S2 no S3-S4. No carotid bruits. Chest wall nonreproducible with palpation RESP: Clear lungs throughout bilateral, no crackles, wheeze, rhonchi, symmetrical chest rise, nonlabored, able to speak in full sentences ABD: Soft, NT, ND, no masses, positive bowel tones EXT: Pulses +24, no dependent edema MS: Normal tone 4 extremities, nontender, no obvious deformities, full range of motion NEURO: CN II through CN XII grossly intact, motor strength 5/5 PSYCH: A+O 3, pleasant affect, appropriate speech, mood, insight and judgment SKIN: Normal turgor, normal texture, no lesions, no rashes, sluggish cap refill , even hair distribution Laboratory Laboratory Tests Test 04/27/17 15:00 White Blood Count 7.8 Red Blood Count 5.08 Hemoglobin 15.1 Hematocrit 45.7 Mean Corpuscular Volume 89.8 Mean Corpuscular Hemoglobin 29.7 Mean Corpuscular Hemoglobin Concent 33.1 Red Cell Distribution Width 15.6 Platelet Count 228 Mean Platelet Volume 7.7 Neutrophils (%) (Auto) 38.4 Lymphocytes (%) (Auto) 46.2 Monocytes (%) (Auto) 9.4 Eosinophils (%) (Auto) 4.6 Basophils (%) (Auto) 1.4 Neutrophils # (Auto) 3.0 Lymphocytes # (Auto) 3.6 Monocytes # (Auto) 0.7 Eosinophils # (Auto) 0.4 Basophils # (Auto) 0.1 CBC Comment DIFF FINAL Differential Comment Prothrombin Time 10.6 Prothromb Time International Ratio 1.0 Activated Partial Thromboplast Time 27.4 Blood Urea Nitrogen 8 Creatinine 0.94 Random Glucose 79 Total Protein 8.3 Albumin 3.7 Calcium Level 8.6 Magnesium Level 2.1 Alkaline Phosphatase 91 Aspartate Amino Transf (AST/SGOT) 15 Alanine Aminotransferase (ALT/SGPT) 25 Total Bilirubin 0.3 Sodium Level 138 Potassium Level 4.7 Chloride Level 105 Carbon Dioxide Level 28.1 Anion Gap 5 Estimat Glomerular Filtration Rate 102 Total Creatine Kinase 108 Creatine Kinase MB 1.3 Troponin I LESS THAN 0.02 B-Type Natriuretic Peptide 46 Lipase 81 Result Diagram: 04/27/17 1500 04/27/17 1500 Imaging Last Impressions Chest X-Ray 04/27/17 1308 Signed Impressions: Service Date/Time: Thursday, April 27, 2017 14:05 - CONCLUSION: Minimal basilar parenchymal opacities. Faraz Tan MD Course EKG NSR, no st t segment changes Caprini VTE Risk Assessment Caprini VTE Risk Assessment: No/Low Risk (score <= 1) Caprini Risk Assessment Model Point Value = 1 Point Value = 2 Point Value = 3 Point Value = 5 Age 41-60 Minor surgery BMI > 25 kg/m2 Swollen legs Varicose veins or History of unexplained or recurrent spontaneous Oral contraceptives or hormone replacement Sepsis (< 1 month) Serious lung disease, including pneumonia (< 1 month) Abnormal pulmonary function Acute myocardial infarction Congestive heart failure (< 1 month) History of inflammatory bowel disease Medical patient at bed rest Age 61-74 Arthroscopic surgery Major open surgery (> 45 min) Laparoscopic surgery (> 45 min) Malignancy Confined to bed (> 72 hours) Immobilizing plaster cast Central venous access Age >= 75 History of VTE Family history of VTE Factor V Leiden Prothrombin [id number] Lupus anticoagulant Anticardiolipin antibodies Elevated serum homocysteine Heparin-induced thrombocytopenia Other congenital or acquired thrombophilia Stroke (< 1 month) Elective arthroplasty Hip, pelvis, or leg fracture Acute spinal cord injury (< 1 month) Prophylaxis Regimen Total Risk Factor Score Risk Level Prophylaxis Regimen 0-1 Low Early ambulation 2 Moderate Order ONE of the following: *Sequential Compression Device (SCD) *Heparin 5000 units SQ BID 3-4 Higher Order ONE of the following medications: *Heparin 5000 units SQ TID *Enoxaparin/Lovenox 40 mg SQ daily (WT < 150 kg, CrCl > 30 mL/min) *Enoxaparin/Lovenox 30 mg SQ daily (WT < 150 kg, CrCl > 10-29 mL/min) *Enoxaparin/Lovenox 30 mg SQ BID (WT < 150 kg, CrCl > 30 mL/min) AND/OR *Sequential Compression Device (SCD) 5 or more Highest Order ONE of the following medications: *Heparin 5000 units SQ TID (Preferred with Epidurals) *Enoxaparin/Lovenox 40 mg SQ daily (WT < 150 kg, CrCl > 30 mL/min) *Enoxaparin/Lovenox 30 mg SQ daily (WT < 150 kg, CrCl > 10-29 mL/min) *Enoxaparin/Lovenox 30 mg SQ BID (WT < 150 kg, CrCl > 30 mL/min) AND *Sequential Compression Device (SCD) Assessment and Plan Assessment and Plan #1 Atypical chest pain-admitted to chest pain center. Rule out with 3 sets of EKGs, cardiac enzymes, and monitor overnight. Seen and evaluated by Dr. Liseth Resendiz. After being ruled out, plan to complete Lexiscan in morning. If unremarkable, plan would be to discharge home with follow up with a PCP. #2 Hypertension-amlodipine 5mg x1 dose now, clonidine PRN, encouraged low sodium diet, weight loss, and establishing with a PCP for follow up. Discussed possible low cost clinics in the area he could establish with. #3 Tobacco use-strongly encouraged and stressed the importance of tobacco cessation. Instructed to quit smoking. Brooklyn Hardy Apr 27, 2017 17:12
[2017-04-27] MEDS ORDERED: amLODIPine BESYLATE 5 MG TAB PO ONE (18:00)
[2017-04-27] MEDS ORDERED: KETOROLAC TROMETHAMINE 30 MG/ML (IVP) VIAL IV PUSH ONE (18:00)
[2017-04-27] MEDS ORDERED: cloNIDine HCL 0.1 MG TAB PO PRN (18:15)
[2017-04-27 19:01] LABS: TROPONIN I LESS THAN 0.02 NG/ML (0.02-0.05)
[2017-04-27] MEDS: SODIUM CHLORIDE 0.9% FLUSH 10 ML FLUSH IV FLUSH SCH (21:54)
[2017-04-27 22:52] LABS: TROPONIN I LESS THAN 0.02 NG/ML (0.02-0.05)
[2017-04-28] VITALS (7 sets, daily range): BP systolic 137–150; BP diastolic 88–105; PULSE 65–74; RESP 18; TEMP 98; O2SAT 93–100
--- NOTE | 2017-04-28 07:34 | PD.CARD.PN ---
Subjective Subjective Remarks No further chest pains overnight. Reports Toradol helped with headache, requesting additional dose. Objective Medications Current Medications Medications (Trade) Dose Ordered Sig/Sonny Route Start Time Stop Time Status Last Admin (NS Flush) 2 ml UNSCH PRN IV FLUSH 04/27/17 17:00 (NS Flush) 2 ml BID IV FLUSH 04/27/17 21:00 04/27/17 21:54 (Tylenol) 500 mg Q4H PRN PO 04/27/17 17:00 (Zofran Inj) 4 mg Q6H PRN IV PUSH 04/27/17 17:00 (Nitrostat Sl) 0.4 mg Q5M PRN SL 04/27/17 17:00 (Aspirin) 325 mg DAILY PO 04/28/17 09:00 (Catapres) 0.1 mg Q6H PRN PO 04/27/17 18:15 04/27/17 21:54 (Norvasc) 5 mg DAILY PO 04/28/17 09:00 Vital Signs / I&O Vital Signs Date Time Temp Pulse Resp B/P (MAP) Pulse Ox O2 Delivery O2 Flow Rate FiO2 04/28/17 04:43 66 04/28/17 02:59 98.0 68 18 150/88 (108) 93 04/28/17 00:03 65 04/27/17 23:33 98.0 71 18 144/88 (106) 96 04/27/17 21:34 180/103 (128) 04/27/17 19:59 97.9 76 18 172/101 (124) 97 04/27/17 18:35 04/27/17 18:09 74 18 99 Room Air 04/27/17 17:02 77 18 175/109 (131) 98 Room Air 04/27/17 15:53 76 18 184/106 (132) 98 Room Air 04/27/17 14:48 74 18 189/109 (135) 98 Room Air 04/27/17 14:47 69 22 95 Room Air 04/27/17 12:31 98.4 85 16 173/98 (123) 98 Physical Exam Alert, no distress. Laboratory Laboratory Tests Test 04/27/17 15:00 04/27/17 17:40 04/27/17 21:52 White Blood Count 7.8 TH/MM3 Red Blood Count 5.08 MIL/MM3 Hemoglobin 15.1 GM/DL Hematocrit 45.7 % Mean Corpuscular Volume 89.8 FL Mean Corpuscular Hemoglobin 29.7 PG Mean Corpuscular Hemoglobin Concent 33.1 % Red Cell Distribution Width 15.6 % Platelet Count 228 TH/MM3 Mean Platelet Volume 7.7 FL Neutrophils (%) (Auto) 38.4 % Lymphocytes (%) (Auto) 46.2 % Monocytes (%) (Auto) 9.4 % Eosinophils (%) (Auto) 4.6 % Basophils (%) (Auto) 1.4 % Neutrophils # (Auto) 3.0 TH/MM3 Lymphocytes # (Auto) 3.6 TH/MM3 Monocytes # (Auto) 0.7 TH/MM3 Eosinophils # (Auto) 0.4 TH/MM3 Basophils # (Auto) 0.1 TH/MM3 CBC Comment DIFF FINAL Differential Comment Prothrombin Time 10.6 SEC Prothromb Time International Ratio 1.0 RATIO Activated Partial Thromboplast Time 27.4 SEC Blood Urea Nitrogen 8 MG/DL Creatinine 0.94 MG/DL Random Glucose 79 MG/DL Total Protein 8.3 GM/DL Albumin 3.7 GM/DL Calcium Level 8.6 MG/DL Magnesium Level 2.1 MG/DL Alkaline Phosphatase 91 U/L Aspartate Amino Transf (AST/SGOT) 15 U/L Alanine Aminotransferase (ALT/SGPT) 25 U/L Total Bilirubin 0.3 MG/DL Sodium Level 138 MEQ/L Potassium Level 4.7 MEQ/L Chloride Level 105 MEQ/L Carbon Dioxide Level 28.1 MEQ/L Anion Gap 5 MEQ/L Estimat Glomerular Filtration Rate 102 ML/MIN Total Creatine Kinase 108 U/L 80 U/L 87 U/L Creatine Kinase MB 1.3 NG/ML Troponin I LESS THAN 0.02 NG/ML LESS THAN 0.02 NG/ML LESS THAN 0.02 NG/ML B-Type Natriuretic Peptide 46 PG/ML Lipase 81 U/L Imaging Last 24 hours Impressions Chest X-Ray 04/27/17 1308 Signed Impressions: Service Date/Time: Thursday, April 27, 2017 14:05 - CONCLUSION: Minimal basilar parenchymal opacities. Faraz Tan MD Assessment and Plan Assessment and Plan #1 Atypical chest pain-admitted to chest pain center. Ruled out with 3 sets of EKG and cardiac enzymes. No further chest pain. Proceed with lexiscan. #2 Hypertension-amlodipine 5mg daily #3 Tobacco use-strongly encouraged and stressed the importance of tobacco cessation. Instructed to quit smoking. [place] Hardy Apr 28, 2017 07:34
[2017-04-28] MEDS: SODIUM CHLORIDE 0.9% FLUSH 10 ML FLUSH IV FLUSH SCH (08:04)
[2017-04-28] MEDS ORDERED: ASPIRIN 325 MG TAB PO SCH (09:00)
[2017-04-28] MEDS ORDERED: amLODIPine BESYLATE 5 MG TAB PO SCH (09:00)
--- NOTE | 2017-04-28 09:13 | EKG ---
Date Performed: 04/27/2017 Time Performed: 21:40:36 PTAGE: 51 years EKG: Sinus rhythm BORDERLINE ECG PREVIOUS TRACING : 04/27/2017 18.13 Since previous tracing, no significant change noted DOCTOR: John Pyle Interpretating Date/Time 04/28/2017 09:11:54
--- NOTE | 2017-04-28 09:16 | EKG ---
Date Performed: 04/27/2017 Time Performed: 18:13:09 PTAGE: 51 years EKG: Sinus rhythm NORMAL ECG PREVIOUS TRACING : 04/27/2017 14.43 Since previous tracing, no significant change noted DOCTOR: John Pyle Interpretating Date/Time 04/28/2017 09:14:38
--- NOTE | 2017-04-28 09:24 | EKG ---
Date Performed: 04/27/2017 Time Performed: 14:43:27 PTAGE: 51 years EKG: Sinus rhythm NORMAL ECG NO PREVIOUS TRACING DOCTOR: John Pyle Interpretating Date/Time 04/28/2017 09:22:12
[2017-04-28] MEDS ORDERED: REGADENOSON INJ 0.4 MG/5 ML SYR ONE (09:25)
[2017-04-28] MEDS ORDERED: KETOROLAC TROMETHAMINE 30 MG/ML (IVP) VIAL IV PUSH ONE (09:30)
--- NOTE | 2017-04-28 10:48 | RADRPT ---
EXAM DATE/TIME: 04/28/2017 09:17 [facility] COMPARISON: No previous studies available for comparison. INDICATIONS : Chest pain for 1 day. Angina. Congestive heart failure. DOSE: 35.0 mCi Tc99m Myoview at stress. 11.0 mCi Tc99m Myoview at rest. 0.4 mg Lexiscan STRESS SYMPTOMS: Shortness of breath. EJECTION FRACTION: 56% MEDICAL HISTORY : Hypertension. Congestive heart failure. Chronic obstructive pulmonary disease. SURGICAL HISTORY : None. ENCOUNTER: Initial ACUITY: 2 days PAIN SCALE: 3/10 LOCATION: Bilateral chest TECHNIQUE: The patient underwent pharmacologic stress with infusion of prescribed dose. Continuous ECG tracing was monitored during stress. Gated SPECT imaging was performed after stress and conventional SPECT i maging was performed at rest. The examination was performed on a SPECT/CT scanner, both attenuation and non-corrected datasets were reviewed. FINDINGS: DISTRIBUTION: The maximum perfused segment at stress is in the anterior lateral wall and inferior wall. Moderate gut activity does obscure the inferior wall. PERFUSION STUDY: The pattern of perfusion at stress is within normal limits. GATED STUDY: There is intact wall motion and thickening without hypokinetic or dyskinetic segments. CONCLUSION: Negative for stress-induced ischemia. RISK CATEGORY: Low (<1% Annual Mortality Rate) Paul Oliver MD FACR on April 28, 2017 at 10:43 Board Certified Radiologist. This report was verified electronically.
[2017-04-28] MEDS ORDERED: AMLO5TAB2 PO (10:52)
--- NOTE | 2017-04-28 10:53 | HHI.DCPOC ---
Discharge Care Plan Diagnosis: (1) Atypical chest pain (2) Hypertension (3) Tobacco abuse Goals to Promote Your Health * To prevent worsening of your condition and complications * To maintain your health at the optimal level Directions to Meet Your Goals Take your medications as prescribed Follow your dietary instruction Follow activity as directed Keep your appointments as scheduled Take your immunizations and boosters as scheduled If your symptoms worsen call your PCP, if no PCP go to Urgent Care Center or Emergency Room Smoking is Dangerous to Your Health. Avoid second hand smoke Call the 24-hour hour crisis hotline for domestic abuse at [place] Apr 28, 2017 10:53
--- NOTE | 2017-04-30 16:14 | TR ---
Date Performed: 04/28/2017 Time Performed: 09:34:05 DOCTOR: John Pyle DRUG LIST: CLINICAL HISTORY: REASON FOR TEST: Angina REASON FOR ENDING: OBSERVATION: CONCLUSION: Lexiscan stress test was performed under standard four minute protocol. Radionuclid e was injected one minute prior to ending the test. No electrocardiographic abormalities were present to suggest ischemia. Nuclear imaging and interpretation are pending. COMMENTS:
== END 2017-04-28 15:06 | disposition home or self-care (01) ==
LOC: NEPD 12:29 → NEDA 16:06 → NEPHCDU 18:29
PROVIDERS: ADMIT Internal Medicine Interventional Cardiology; ATTEND Internal Medicine Interventional Cardiology
DX: R07.89 Other chest pain (principal); I11.0 Hypertensive heart disease with heart failure; I50.9 Heart failure, unspecified; R06.00 Dyspnea, unspecified; R61 Generalized hyperhidrosis; R68.84 Jaw pain; R06.02 Shortness of breath; R51 Headache; I20.9 Angina pectoris, unspecified; J44.9 Chronic obstructive pulmonary disease, unspecified; H40.9 Unspecified glaucoma; H91.90 Unspecified hearing loss, unspecified ear; F17.200 Nicotine dependence, unspecified, uncomplicated; Z86.73 Personal history of transient ischemic attack (TIA), and cerebral infarction without residual deficits
CPT/HCPCS: 71046; 78452; 80053; 82550; 82552; 83690; 83735; 83880; 84484; 85025; 85610; 85730; 93005; 93017; 96374; 96376; 99285; A9502; G0378; J1885; J2785

== ENCOUNTER 2017-06-30 21:21 | Emergency (ER) | payer SELFPAY ==
[~2017-06-30] VITALS: Ht 172.7 cm; Wt 106.0 kg
[~2017-06-30 21:21] MED LIST changes: +AMLO5TAB2 PO; -BACT800T5 PO; -CEPH-460 PO
[2017-06-30 21:28] VITALS: BP 131/80; PULSE 83; RESP 20; TEMP 98; O2SAT 98
[2017-06-30 21:33] VITALS: BP 131/80; PULSE 79; RESP 20; TEMP 98; O2SAT 97
[2017-06-30 21:42] VITALS: RESP 18; O2SAT 97
[2017-06-30] MEDS ORDERED: SODIUM CHLORIDE 0.9% FLUSH 10 ML FLUSH IVF PRN (21:45)
[2017-06-30 21:48] LABS: AUTOMATED NEUTROPHIL # 3.6 TH/MM3 (1.8-7.7); BASOPHIL # 0.1 TH/MM3 (0-0.2); BASOPHIL % 1.1 % (0.0-2.0); EOSINOPHIL # 0.3 TH/MM3 (0-0.4); EOSINOPHIL % 3.3 % (0.0-4.0); HEMATOCRIT 42.7 % (39.0-51.0); HEMOGLOBIN 14.3 GM/DL (13.0-17.0); LYMPH % 40.9 % (9.0-44.0); LYMPHOCYTE # 3.2 TH/MM3 (1.0-4.8); MEAN CELL VOLUME 87.8 FL (80.0-100.0); MEAN CORPUSCULAR HEMOGLOBIN 29.5 PG (27.0-34.0); MEAN CORPUSCULAR HGB CONC 33.6 % (32.0-36.0); MEAN PLATELET VOLUME 7.4 FL (7.0-11.0); MONO % 9.4 % (0.0-8.0); MONOCYTE # 0.7 TH/MM3 (0-0.9); NEUT % 45.3 % (16.0-70.0); PLATELET COUNT 211 TH/MM3 (150-450); RED BLOOD COUNT 4.86 MIL/MM3 (4.50-5.90); RED CELL DISTRIBUTION WIDTH 15.6 % (11.6-17.2); WHITE BLOOD COUNT 7.9 TH/MM3 (4.0-11.0)
--- NOTE | 2017-06-30 21:59 | RADRPT ---
EXAM DATE/TIME: 06/30/2017 21:49 [facility] COMPARISON: CHEST PA & LAT, April 27, 2017, 14:05. INDICATIONS : Chest pain. MEDICAL HISTORY : None. SURGICAL HISTORY : None. ENCOUNTER: Initial ACUITY: 1 day PAIN SCORE: 7/10 LOCATION: middle chest. FINDINGS: A single view of the chest demonstrates the lungs to be symmetrically aerated without evidence of mas s, infiltrate or effusion. The cardiomediastinal contours are unremarkable. Osseous structures are intact. CONCLUSION: No evidence of acute cardiopulmonary disease. Faraz Joseph MD on June 30, 2017 at 21:56 Board Certified Radiologist. This report was verified electronically.
[2017-06-30 22:01] LABS: INTERNATIONAL NORMALIZED RATIO 1.1 RATIO; PROTHROMBIN TIME - PATIENT 10.7 SEC (9.8-11.6)
[2017-06-30 22:19] LABS: ALBUMIN 3.5 GM/DL (3.4-5.0); AST (GOT) 13 U/L (15-37); BICARBONATE 24.5 MEQ/L (21.0-32.0); BLOOD UREA NITROGEN 12 MG/DL (7-18); CALCIUM 9.2 MG/DL (8.5-10.1); CHLORIDE 104 MEQ/L (98-107); GLOMERULAR FILTRATION RATE 95 ML/MIN (>89); GLUCOSE,RANDOM 101 MG/DL (74-106); SODIUM (NA) 138 MEQ/L (136-145)
[2017-06-30 22:20] LABS: ALT (GPT) 25 U/L (12-78)
[2017-06-30 22:24] LABS: ALKALINE PHOSPHATASE 88 U/L (45-117); TOTAL BILIRUBIN ADULT 0.4 MG/DL (0.2-1.0); TOTAL PROTEIN 7.8 GM/DL (6.4-8.2); TROPONIN I LESS THAN 0.02 NG/ML (0.02-0.05)
--- NOTE | 2017-06-30 22:47 | PD ---
HPI Chief Complaint: Chest Pain Time Seen by Provider: 21:28 Travel History International Travel<30 days: No Contact w/Intl Traveler<30days: No Traveled to known affect area: No History of Present Illness HPI 51-year-old male arrives with chest pain retrosternal. He reports resolution of symptoms after belching upon arrival to the ER. Symptoms occurred while he was standing cooking. EMS gave nitroglycerin which was beneficial. The patient states the pain was 8/10. Patient describes it as a constant aching pain. Patient had a stress test performed about 2 months ago which was negative.patient has a history of hypertension. He has no history of hyperlipidemia or diabetes. He reports a history of CHF. He has been short of breath this minimal exertion and orthopnea reported. No fever or cough. PFSH Past Medical History Cardiac Catheterization: No Cardiovascular Problems: Yes High Cholesterol: No Congestive Heart Failure: Yes COPD: Yes Diabetes: No Diminished Hearing: Yes ([place]) Glaucoma: Yes Headaches: Yes Hypertension: Yes Respiratory: Yes Immunizations Current: Yes Tetanus Vaccination: < 5 Years Influenza Vaccination: No Past Surgical History Surgical History: No Previous Surgery Coronary Artery Bypass Graft: No Family History Family Myocardial Infarction: Yes Social History Alcohol Use: Yes (OCC) Tobacco Use: Yes (04/21 PPD) Substance Use: Yes (MARIJUANA) Allergies-Medications (Allergen,Severity, Reaction): Coded Allergies: lisinopril (Unverified Allergy, Severe, 06/30/17) Angioedema Uncoded Allergies: enteric coating of aspirin (Allergy, Severe, Anaphylaxis, 06/30/17) Reported Meds & Prescriptions Reported Meds & Active Scripts Active Amlodipine (Amlodipine Besylate) 5 Mg Tab 5 Mg PO DAILY Review of Systems Except as stated in HPI: all other systems reviewed are Neg Physical Exam Narrative GENERAL: 51-year-old male well-nourished well-developed Vital Signs Date Time Temp Pulse Resp B/P (MAP) Pulse Ox O2 Delivery O2 Flow Rate FiO2 06/30/17 22:54 06/30/17 22:53 87 18 119/80 (93) 100 06/30/17 21:42 18 97 Room Air 06/30/17 21:42 97 Room Air 06/30/17 21:33 98.0 79 20 131/80 (97) 97 Room Air 06/30/17 21:28 98.0 83 20 131/80 (97) 98 SKIN: Warm dry. HEAD: Atraumatic. Normocephalic. EYES: Pupils equal and round. No scleral icterus. No injection or drainage. ENT: No nasal bleeding or discharge. Mucous membranes pink and moist. NECK: Trachea midline. No JVD. CARDIOVASCULAR: Regular rate and rhythm. RESPIRATORY: No accessory muscle use. Clear to auscultation. Breath sounds equal bilaterally. GASTROINTESTINAL: Abdomen soft, non-tender, nondistended. Hepatic and splenic margins not palpable. MUSCULOSKELETAL: Extremities without clubbing, cyanosis, or edema. No obvious deformities. NEUROLOGICAL: Awake and alert. No obvious cranial nerve deficits. Motor grossly within normal limits. Five out of 5 muscle strength in the arms and legs. Normal speech. PSYCHIATRIC: Appropriate mood and affect; insight and judgment normal. Data Data Last Documented VS Vital Signs Date Time Temp Pulse Resp B/P (MAP) Pulse Ox O2 Delivery O2 Flow Rate FiO2 06/30/17 22:54 06/30/17 22:53 87 18 100 06/30/17 21:42 Room Air 06/30/17 21:33 98.0 Orders Orders Electrocardiogram (06/30/17 21:35) Ckmb (Isoenzyme) Profile (06/30/17 21:35) Complete Blood Count With Diff (06/30/17 21:35) Comprehensive Metabolic Panel (06/30/17 21:35) Magnesium (Mg) (06/30/17 21:35) Prothrombin Time / Inr (Pt) (06/30/17 21:35) Act Partial Throm Time (Ptt) (06/30/17 21:35) Troponin I (06/30/17 21:35) Lipase (06/30/17 21:35) Ecg Monitoring (06/30/17 21:35) Bilateral Bp Monitoring (06/30/17 21:35) Iv Access Insert/Monitor (06/30/17 21:35) Oximetry (06/30/17 21:35) Oxygen Administration (06/30/17 21:35) Sodium Chloride 0.9% Flush (Ns Flush) (06/30/17 21:45) Chest, Single Ap (06/30/17 ) CKMB (06/30/17 21:39) CKMB% (06/30/17 21:39) Ed Discharge Order (06/30/17 22:47) Labs Laboratory Tests Test 06/30/17 21:39 White Blood Count 7.9 TH/MM3 Red Blood Count 4.86 MIL/MM3 Hemoglobin 14.3 GM/DL Hematocrit 42.7 % Mean Corpuscular Volume 87.8 FL Mean Corpuscular Hemoglobin 29.5 PG Mean Corpuscular Hemoglobin Concent 33.6 % Red Cell Distribution Width 15.6 % Platelet Count 211 TH/MM3 Mean Platelet Volume 7.4 FL Neutrophils (%) (Auto) 45.3 % Lymphocytes (%) (Auto) 40.9 % Monocytes (%) (Auto) 9.4 % Eosinophils (%) (Auto) 3.3 % Basophils (%) (Auto) 1.1 % Neutrophils # (Auto) 3.6 TH/MM3 Lymphocytes # (Auto) 3.2 TH/MM3 Monocytes # (Auto) 0.7 TH/MM3 Eosinophils # (Auto) 0.3 TH/MM3 Basophils # (Auto) 0.1 TH/MM3 CBC Comment DIFF FINAL Differential Comment Prothrombin Time 10.7 SEC Prothromb Time International Ratio 1.1 RATIO Activated Partial Thromboplast Time 23.7 SEC Blood Urea Nitrogen 12 MG/DL Creatinine 1.00 MG/DL Random Glucose 101 MG/DL Total Protein 7.8 GM/DL Albumin 3.5 GM/DL Calcium Level 9.2 MG/DL Magnesium Level 2.0 MG/DL Alkaline Phosphatase 88 U/L Aspartate Amino Transf (AST/SGOT) 13 U/L Alanine Aminotransferase (ALT/SGPT) 25 U/L Total Bilirubin 0.4 MG/DL Sodium Level 138 MEQ/L Potassium Level 3.8 MEQ/L Chloride Level 104 MEQ/L Carbon Dioxide Level 24.5 MEQ/L Anion Gap 10 MEQ/L Estimat Glomerular Filtration Rate 95 ML/MIN Total Creatine Kinase 145 U/L Creatine Kinase MB 2.2 NG/ML Troponin I LESS THAN 0.02 NG/ML Lipase 64 U/L MDM Medical Decision Making Medical Screen Exam Complete: Yes Emergency Medical Condition: Yes Medical Record Reviewed: Yes Differential Diagnosis NSTEMI, unstable angina, coronary vasospasm, PE, PTX, aortic dissection, pericarditis, myocarditis, endocarditis, PNA, esophageal disease, aneurysm, musculoskeletal etiologies, anxiety, cocaine/sympathomimetic abuse Narrative Course CBC & BMP Diagram 06/30/17 21:39 Total Protein 7.8, Albumin 3.5, Calcium Level 9.2, Magnesium Level 2.0, Alkaline Phosphatase 88, Aspartate Amino Transf (AST/SGOT) 13 L, Alanine Aminotransferase (ALT/SGPT) 25, Total Bilirubin 0.4 EKG shows sinus rhythm rate 78 normal axis intervals no ischemic acute ischemic injury pattern The patient is resting comfortably and feels better, is alert and in no distress. The patients results and examination findings were discussed. The repeat examination is unremarkable and benign. The history, exam, diagnostic testing, and current condition do not suggest any significant pathology to warrant further testing, continued ED treatment, admission, or surgical evaluation at this point. The vital signs have been stable. The patient does not have uncontrollable pain, intractable vomiting, or other significant symptoms. The patient's condition is stable and appropriate for discharge. The patient will pursue further outpatient evaluation with a primary care physician or other designated or consulting physician as indicated in the discharge instructions. The patient expressed understanding and was agreeable with this plan. Diagnosis Primary Impression: Chest pain Qualified Codes: R07.9 - Chest pain, unspecified Med/Other Pt SpecificInfo: No Change to Meds Disposition: 01 DISCHARGE HOME Condition: Stable Sheldon Joseph MD Jun 30, 2017 22:47
[2017-06-30 22:53] VITALS: BP 119/80; PULSE 87; RESP 18; O2SAT 100
--- NOTE | 2017-07-01 14:09 | EKG ---
Date Performed: 06/30/2017 Time Performed: 21:30:26 PTAGE: 51 years EKG: Sinus rhythm NORMAL ECG Since the PREVIOUS TRACING , no significant change noted PREVIOUS TRACIN04/27/2017 21.40 DOCTOR: Noreen Ayala Interpretating Date/Time 07/01/2017 13:58:54
== END 2017-06-30 22:55 | disposition home or self-care (01) ==
LOC: NEPE 21:21
DX: R07.9 Chest pain, unspecified (principal); R06.02 Shortness of breath; R06.01 Orthopnea; I10 Essential (primary) hypertension; H91.90 Unspecified hearing loss, unspecified ear; F17.200 Nicotine dependence, unspecified, uncomplicated; Z79.899 Other long term (current) drug therapy; Z86.79 Personal history of other diseases of the circulatory system; Z87.09 Personal history of other diseases of the respiratory system
CPT/HCPCS: 71045; 80053; 82550; 82552; 83690; 83735; 84484; 85025; 85610; 85730; 93005; 99285

== ENCOUNTER 2017-07-04 11:33 | Emergency (ER) | payer SELFPAY ==
[~2017-07-04] VITALS: Ht 170.2 cm; Wt 105.0 kg
[2017-07-04 11:44] VITALS: BP 122/56; PULSE 78; RESP 16; TEMP 98.3; O2SAT 98
[2017-07-04] MEDS ORDERED: GABA300C5 PO ×2 (12:33→15:44)
--- NOTE | 2017-07-04 12:34 | PD ---
HPI Chief Complaint: Musculoskeletal Complaint Time Seen by Provider: 12:19 Travel History International Travel<30 days: No Contact w/Intl Traveler<30days: No Traveled to known affect area: No History of Present Illness HPI Patient's comes in complaining of tingling and numbness to the lateral right thigh which has been golfing over the past month or so, however patient states that he has been worsening and so the patient comes in for further evaluation today. His main concern is that of a DVT. Although he has no major risk factors that he knows from a family history kelly. However the patient does have a history of smoking cigarettes. Patient denies any swelling to his extremities. Also denies any rash or redness or warmth to his skin over the lower extremities. Patient states only allergies to aspirin lisinopril Patient states his past medical history significant for hypertension PFSH Past Medical History Cardiac Catheterization: No Cardiovascular Problems: Yes High Cholesterol: No Congestive Heart Failure: Yes COPD: Yes Diabetes: No Diminished Hearing: Yes ([place]) Glaucoma: Yes Headaches: Yes Hypertension: Yes Respiratory: Yes Immunizations Current: Yes Past Surgical History Coronary Artery Bypass Graft: No Social History Alcohol Use: Yes (OCC) Tobacco Use: Yes (04/21 PPD) Substance Use: Yes (MARIJUANA) Allergies-Medications (Allergen,Severity, Reaction): Coded Allergies: lisinopril (Unverified Allergy, Severe, 07/04/17) Angioedema Uncoded Allergies: enteric coating of aspirin (Allergy, Severe, Anaphylaxis, 06/30/17) Reported Meds & Prescriptions Reported Meds & Active Scripts Active Amlodipine (Amlodipine Besylate) 5 Mg Tab 5 Mg PO DAILY Review of Systems General / Constitutional: No: Fever Eyes: No: Visual changes HENT: No: Headaches Cardiovascular: No: Chest Pain or Discomfort Respiratory: No: Shortness of Breath Gastrointestinal: No: Abdominal Pain Genitourinary: No: Dysuria Musculoskeletal: No: Pain Skin: No Rash Neurologic: Positive: Paresthesia Psychiatric: No: Depression Endocrine: No: Polydipsia Hematologic/Lymphatic: No: Easy Bruising Physical Exam Narrative GENERAL: SKIN: Warm and dry. HEAD: Atraumatic. Normocephalic. EYES: Pupils equal and round. No scleral icterus. No injection or drainage. ENT: No nasal bleeding or discharge. Mucous membranes pink and moist. NECK: Trachea midline. No JVD. CARDIOVASCULAR: Regular rate and rhythm. RESPIRATORY: No accessory muscle use. Clear to auscultation. Breath sounds equal bilaterally. GASTROINTESTINAL: Abdomen soft, non-tender, nondistended. MUSCULOSKELETAL: Extremities without clubbing, cyanosis, or edema. No obvious deformities. NEUROLOGICAL: Awake and alert. No obvious cranial nerve deficits. Motor grossly within normal limits. Five out of 5 muscle strength in the arms and legs. Normal speech. PSYCHIATRIC: Appropriate mood and affect; insight and judgment normal. Data Data Last Documented VS Vital Signs Date Time Temp Pulse Resp B/P (MAP) Pulse Ox O2 Delivery O2 Flow Rate FiO2 07/04/17 11:44 98.3 78 16 122/56 (78) 98 Orders Orders Us Leg Venous Doppler (07/04/17 12:28) [facility] Medical Decision Making Medical Screen Exam Complete: Yes Emergency Medical Condition: Yes Medical Record Reviewed: Yes Differential Diagnosis DVT versus cellulitis versus meralgia paresthetica versus paresthesia Narrative Course Ultrasound does not show any evidence of DVT. Clinically the patient shows evidence of paresthesias over the lateral thigh, over the iliotibial band area. Diagnosis Primary Impression: Paresthesia Patient Instructions: General Instructions, Paresthesia (ED) Scripts Gabapentin (Gabapentin) 300 Mg Cap 300 MG PO BID, #30 CAP 0 Refills Prov: Michael Guo MD 07/04/17 Disposition: 01 DISCHARGE HOME Condition: Stable Michael Guo MD Jul 04, 2017 12:34
--- NOTE | 2017-07-04 13:50 | RADRPT ---
EXAM DATE/TIME: 07/04/2017 13:20 [facility] COMPARISON: No previous studies available for comparison. INDICATIONS : Right leg pain. MEDICAL HISTORY : Congestive heart failure. Hypertension. Chronic obstructive pulmonary disease. Glaucoma. Hard of h earing. Headache. Substance use. SURGICAL HISTORY : None. ENCOUNTER: Initial ACUITY: >1 year PAIN SCORE: 8/10 LOCATION: Right leg. TECHNIQUE: Venous ultrasound of the leg was performed from the inguinal ligament to the proximal calf. Real-davon e, color Doppler and spectral tracing, compression and augmentation techniques were used. FINDINGS: There is normal compressibility of the deep venous system from the inguinal region to the proximal ca lf. No echogenic clot is seen in the lumen of the common femoral, femoral, popliteal, and posterior tibial veins. There is a normal response of the venous system to proximal and distal augmentation an d respiration. CONCLUSION: Normal examination. Misty Mcconnell MD on July 04, 2017 at 13:47 Board Certified Radiologist. This report was verified electronically.
== END 2017-07-04 16:02 | disposition home or self-care (01) ==
LOC: NEPD 11:33
DX: R20.2 Paresthesia of skin (principal); M79.604 Pain in right leg; I11.0 Hypertensive heart disease with heart failure; I50.9 Heart failure, unspecified; F17.200 Nicotine dependence, unspecified, uncomplicated
CPT/HCPCS: 93971